=== PATIENT | female | born 1940 | race Caucasian/White ===

== ENCOUNTER 2017-11-26 18:26 | Inpatient (IN) | payer MEDICARE ==
[~2017-11-26] VITALS: Ht 160 cm; Wt 77.8 kg
[~2017-11-26 18:26] MED LIST: ALLO300T PO; AMLO10TA2 PO; ASPI-496 PO; CALC1CAP8 PO; FURO-93 PO; LOSA100T6 PO; METF500T4 PO; METO50TA82 PO; NIAC500T9 PO; PRAV20TA2 PO
[2017-11-26] MEDS ORDERED: SODIUM CHLORIDE FLUSH 10ML SYR IVF ONE (19:00)
[2017-11-26 19:06] LABS: BASOPHILS # (AUTO) 0.05 x10^3/uL (0-0.1); BASOPHILS % (AUTO) 1 % (0-1); EOSINOPHILS # (AUTO) 0.46 x10^3/uL (0-0.4); EOSINOPHILS % (AUTO) 4 % (1-7); LYMPHOCYTES # (AUTO) 3.47 x10^3/uL (1-3.4); LYMPHOCYTES % (AUTO) 32 % (22-44); MD NO; MEAN CORPUSCULAR HEMOGLOBIN 31.6 pg (27.0-34.8); MEAN CORPUSCULAR HGB CONC 33.4 g/dL (32.4-35.8); MEAN CORPUSCULAR VOLUME 94.5 fL (80-100); MONOCYTES # (AUTO) 0.88 x10^3/uL (0.2-0.8); MONOCYTES % (AUTO) 8 % (2-9); NEUTROPHILS # (AUTO) 6.15 x10^3/uL (1.8-6.8); NEUTROPHILS % (AUTO) 56 % (42-75); PLATELET COUNT 304 x10^3/uL (130-400); RED CELL DISTRIBUTION WIDTH 14.3 % (9.6-15.2)
[2017-11-26 19:11] LABS: INTERNATIONAL NORMALIZED RATIO 0.98 (0.93-1.1); PROTHROMBIN TIME 10.2 Seconds (9.6-11.5)
[2017-11-26 19:16] LABS: ALANINE AMINOTRANSFERASE 17 U/L (12-78); ALBUMIN 4.3 g/dL (3.4-5.0); ANION GAP 8 mmol/L (5-15); CALCIUM 9.9 mg/dL (8.5-10.1); CHLORIDE 105 mmol/L (98-107); CREATININE 1.12 mg/dL (0.55-1.02)
[2017-11-26 19:20] LABS: ALKALINE PHOSPHATASE 76 U/L (45-117); BILIRUBIN,TOTAL 0.3 mg/dL (0.2-1.0); TOTAL PROTEIN 8.2 g/dL (6.4-8.2); TROPONIN I < 0.015 ng/mL (0.000-0.045)
[2017-11-26 21:50] VITALS: BP_SYST 171; BP_SYST 96; BP_DIAS 65; BP_DIAS 67
[2017-11-26] MEDS ORDERED: ONDANSETRON ODT 4 MG PO PRN (23:00)
[2017-11-27] MEDS ORDERED: ASPIRIN 81 MG TABLET CHEW PO ONE
[2017-11-27] MEDS ORDERED: DIPHENHYDRAMINE 50 MG CAPSULE PO ONE
[2017-11-27] MEDS: ENOXAPARIN 40 MG/0.4 ML SQ SCH (00:21)
[2017-11-27] MEDS: PRAVASTATIN 20 MG TABLET PO SCH ×2 (00:21→20:29)
[2017-11-27 01:10] LABS: TROPONIN I < 0.015 ng/mL (0.000-0.045)
[2017-11-27 03:19] VITALS: BP 133/69
[2017-11-27 03:20] VITALS: BP 83/53
[2017-11-27 07:08] LABS: BASOPHILS # (AUTO) 0.13 x10^3/uL (0-0.1); BASOPHILS % (AUTO) 1 % (0-1); EOSINOPHILS # (AUTO) 0.39 x10^3/uL (0-0.4); EOSINOPHILS % (AUTO) 4 % (1-7); LYMPHOCYTES # (AUTO) 2.51 x10^3/uL (1-3.4); LYMPHOCYTES % (AUTO) 27 % (22-44); MD NO; MEAN CORPUSCULAR HEMOGLOBIN 31.6 pg (27.0-34.8); MEAN CORPUSCULAR HGB CONC 33.7 g/dL (32.4-35.8); MEAN CORPUSCULAR VOLUME 93.6 fL (80-100); MEAN PLATELET VOLUME 8.1 fL (7.4-10.4); MONOCYTES % (AUTO) 8 % (2-9); NEUTROPHILS % (AUTO) 60 % (42-75); PLATELET COUNT 300 x10^3/uL (130-400); RED CELL DISTRIBUTION WIDTH 14.1 % (9.6-15.2)
[2017-11-27 07:10] VITALS: BP 167/89
[2017-11-27 07:20] LABS: CHOL/HDL RATIO 2.1; LDL/HDL RATIO 0.6 (0.5-3.0)
[2017-11-27 07:36] LABS: TROPONIN I < 0.015 ng/mL (0.000-0.045)
[2017-11-27] MEDS: NIACIN 500 MG TABLET.ER PO SCH (08:06)
[2017-11-27] MEDS: FUROSEMIDE 20 MG TABLET PO SCH (08:06)
[2017-11-27] MEDS: METOPROLOL TARTRATE 50 MG TABLET PO SCH ×2 (08:06→20:30)
[2017-11-27] MEDS: LOSARTAN 50MG TABLET PO SCH (08:06)
[2017-11-27] MEDS: ALLOPURINOL 300 MG TABLET PO SCH (08:06)
[2017-11-27] MEDS: AMLODIPINE 5 MG TABLET PO SCH (08:06)
[2017-11-27] MEDS ORDERED: LORazepam 0.5MG TABLET PO ONE (08:30)
[2017-11-27] MEDS ORDERED: LORazepam 0.5MG TABLET ONE (08:32)
[2017-11-27] MEDS ORDERED: GADOBUTROL 7.5 MMOL/7.5 ML PFS ONE (09:06)
[2017-11-27 11:10] LABS: ANION GAP 11 mmol/L (5-15); CHLORIDE 109 mmol/L (98-107); CREATININE 1.02 mg/dL (0.55-1.02)
[2017-11-27 12:07] VITALS: BP 127/77
[2017-11-27] MEDS ORDERED: OMNIPAQUE 350 MG/ML, 100ML BOTTLE ONE (15:00)
[2017-11-27] MEDS ORDERED: NITROGLYCERIN 0.4 MG BOTTLE (25 TABS) SL PRN (16:00)
[2017-11-27] MEDS ORDERED: NITROGLYCERIN 0.4 MG/SPRAY SL PRN (16:00)
[2017-11-27] MEDS ORDERED: DEXTROSE 50%, 50ML SYRINGE IVPush PRN (16:30)
[2017-11-27] MEDS: INSULIN LISPRO 100 UNITS/ML, PEN SQ-INSULIN SCH ×2 (16:30→20:30)
[2017-11-27] MEDS ORDERED: GLUCAGON 1 MG IM PRN (16:30)
[2017-11-27] MEDS ORDERED: DEXTROSE 4 GM TAB.CHEW PO PRN (16:30)
[2017-11-27] MEDS: CLOPIDOGREL 75 MG TABLET PO SCH (16:37)
[2017-11-27 16:50] LABS: HEMOGLOBIN A1C 5.3 % (4.2-6.3)
[2017-11-27 18:26] VITALS: BP 154/79
[2017-11-27 18:27] VITALS: BP 113/74
[2017-11-27] MEDS: SODIUM CHLORIDE FLUSH 10ML SYR IVF SCH ×2 (20:30)
[2017-11-28] VITALS (8 sets, daily range): BP systolic 72–170; BP diastolic 49–80
[2017-11-28] MEDS: ENOXAPARIN 40 MG/0.4 ML SQ SCH (00:29)
[2017-11-28] MEDS: ASPIRIN 81 MG TABLET EC PO SCH (05:03)
[2017-11-28 05:58] LABS: ANION GAP 7 mmol/L (5-15); CALCIUM 9.5 mg/dL (8.5-10.1); CHLORIDE 107 mmol/L (98-107); CREATININE 0.92 mg/dL (0.55-1.02)
[2017-11-28] MEDS ORDERED: ASPIRIN 325 MG TABLET PO SCH (06:00)
[2017-11-28] MEDS: INSULIN LISPRO 100 UNITS/ML, PEN SQ-INSULIN SCH ×4 (07:00→20:27)
[2017-11-28] MEDS: FUROSEMIDE 20 MG TABLET PO SCH (09:00)
[2017-11-28] MEDS: SODIUM CHLORIDE FLUSH 10ML SYR IVF SCH ×4 (09:00→20:26)
[2017-11-28] MEDS: METOPROLOL TARTRATE 50 MG TABLET PO SCH ×2 (09:00→20:26)
[2017-11-28] MEDS: LOSARTAN 50MG TABLET PO SCH (10:43)
[2017-11-28] MEDS: CLOPIDOGREL 75 MG TABLET PO SCH (10:47)
[2017-11-28] MEDS: AMLODIPINE 5 MG TABLET PO SCH (10:47)
[2017-11-28] MEDS: NIACIN 500 MG TABLET.ER PO SCH (10:48)
[2017-11-28] MEDS: ALLOPURINOL 300 MG TABLET PO SCH (10:48)
[2017-11-28] MEDS ORDERED: REGADENOSON 0.4 MG/5 ML SYRINGE ONE (11:07)
[2017-11-28] MEDS: PRAVASTATIN 20 MG TABLET PO SCH (20:26)
[2017-11-29] MEDS: ENOXAPARIN 40 MG/0.4 ML SQ SCH
[2017-11-29 00:26] VITALS: BP 152/79
[2017-11-29] MEDS: ASPIRIN 81 MG TABLET EC PO SCH (05:09)
[2017-11-29 05:18] LABS: ANION GAP 7 mmol/L (5-15); CALCIUM 9.4 mg/dL (8.5-10.1); CHLORIDE 107 mmol/L (98-107)
[2017-11-29 06:48] VITALS: BP 145/74
[2017-11-29] MEDS: INSULIN LISPRO 100 UNITS/ML, PEN SQ-INSULIN SCH ×4 (07:00→21:08)
[2017-11-29] MEDS: SODIUM CHLORIDE FLUSH 10ML SYR IVF SCH ×4 (08:16→21:07)
[2017-11-29] MEDS: LOSARTAN 50MG TABLET PO SCH (08:16)
[2017-11-29] MEDS: ALLOPURINOL 300 MG TABLET PO SCH (08:16)
[2017-11-29] MEDS: FUROSEMIDE 20 MG TABLET PO SCH (08:17)
[2017-11-29] MEDS: NIACIN 500 MG TABLET.ER PO SCH (08:17)
[2017-11-29] MEDS: METOPROLOL TARTRATE 50 MG TABLET PO SCH ×2 (08:17→21:07)
[2017-11-29] MEDS: CLOPIDOGREL 75 MG TABLET PO SCH (08:19)
[2017-11-29] MEDS: AMLODIPINE 5 MG TABLET PO SCH (08:22)
[2017-11-29 12:24] VITALS: BP 123/73
[2017-11-29] MEDS ORDERED: FAMOTIDINE 20 MG TABLET ONE (15:27)
[2017-11-29] MEDS ORDERED: ONDANSETRON 2MG/ML, 2ML ONE (15:27)
[2017-11-29] MEDS ORDERED: ACETAMINOPHEN 500 MG TABLET ONE (15:28)
[2017-11-29] MEDS ORDERED: METOCLOPRAMIDE 10MG TABLET ONE (15:28)
[2017-11-29] MEDS ORDERED: CETIRIZINE 10 MG TABLET PO PRN (16:30)
[2017-11-29 19:28] VITALS: BP 97/60
[2017-11-29] MEDS: PRAVASTATIN 20 MG TABLET PO SCH (21:07)
[2017-11-30 00:53] VITALS: BP 146/77
[2017-11-30 05:13] LABS: BASOPHILS # (AUTO) 0.03 x10^3/uL (0-0.1); BASOPHILS % (AUTO) 0 % (0-1); EOSINOPHILS # (AUTO) 0.31 x10^3/uL (0-0.4); EOSINOPHILS % (AUTO) 4 % (1-7); LYMPHOCYTES % (AUTO) 29 % (22-44); MD NO; MEAN CORPUSCULAR HEMOGLOBIN 31.1 pg (27.0-34.8); MEAN CORPUSCULAR VOLUME 94.3 fL (80-100); MEAN PLATELET VOLUME 8.3 fL (7.4-10.4); MONOCYTES # (AUTO) 0.89 x10^3/uL (0.2-0.8); MONOCYTES % (AUTO) 11 % (2-9); NEUTROPHILS # (AUTO) 4.79 x10^3/uL (1.8-6.8); NEUTROPHILS % (AUTO) 56 % (42-75); PLATELET COUNT 272 x10^3/uL (130-400); RED BLOOD COUNT 4.13 x10^6/uL (3.82-5.3)
[2017-11-30 05:16] LABS: ANION GAP 9 mmol/L (5-15); CALCIUM 9.1 mg/dL (8.5-10.1); CHLORIDE 108 mmol/L (98-107); CREATININE 0.82 mg/dL (0.55-1.02)
[2017-11-30] MEDS: ASPIRIN 81 MG TABLET EC PO SCH (05:25)
[2017-11-30] MEDS: INSULIN LISPRO 100 UNITS/ML, PEN SQ-INSULIN SCH ×4 (07:00→20:29)
[2017-11-30 07:14] VITALS: BP 160/80
[2017-11-30] MEDS ORDERED: BUPIVACAINE/PF 0.5% ONE (07:17)
[2017-11-30] MEDS ORDERED: PAPAVERINE 30 MG/ML, 2ML ONE (07:17)
[2017-11-30] MEDS ORDERED: BACITRACIN 50,000 UNIT ONE (07:18)
[2017-11-30] MEDS ORDERED: PROTAMINE SULFATE 10 MG/ML, 5ML ONE (07:18)
[2017-11-30] MEDS ORDERED: HEPARIN 1,000 UNITS/ML, 10ML ONE (07:18)
[2017-11-30] MEDS ORDERED: THROMBIN 20,000 UNIT VIAL TP ONE (07:18)
[2017-11-30] MEDS ORDERED: EPINEPHRINE 1 MG/ML, 1ML ONE (07:18)
[2017-11-30] MEDS ORDERED: REMIFENTANIL 2 MG ONE ×2 (07:22)
[2017-11-30] MEDS ORDERED: GLYCOPYRROLATE 0.2MG/1ML, 5ML ONE (07:47)
[2017-11-30] MEDS ORDERED: DEXAMETHASONE 4 MG/ML, 1ML ONE (07:47)
[2017-11-30] MEDS ORDERED: NEOSTIGMINE 1 MG/ML, 10ML ONE (07:47)
[2017-11-30] MEDS ORDERED: PROPOFOL 10 MG/ML, 20ML ONE (07:47)
[2017-11-30] MEDS ORDERED: ONDANSETRON 2MG/ML, 2ML ONE (07:47)
[2017-11-30] MEDS ORDERED: CEFAZOLIN 1,000 MG ONE (07:47)
[2017-11-30] MEDS ORDERED: ROCURONIUM 10 MG/ML,10ML ONE (07:47)
[2017-11-30] MEDS ORDERED: PHENYLEPHRINE 10 MG/ML ONE (07:47)
[2017-11-30] MEDS ORDERED: BUPIVACAINE/PF-EPI 0.5% 1:200K IM ONE (08:31)
[2017-11-30] MEDS: METOPROLOL TARTRATE 50 MG TABLET PO SCH ×2 (09:00→20:28)
[2017-11-30] MEDS: SODIUM CHLORIDE FLUSH 10ML SYR IVF SCH ×2 (09:00→20:28)
[2017-11-30] MEDS: CLOPIDOGREL 75 MG TABLET PO SCH (09:00)
[2017-11-30] MEDS ORDERED: GLYCOPYRROLATE 0.4 MG/2 ML, 2ML ONE (11:08)
[2017-11-30] MEDS ORDERED: GLYCOPYRROLATE 0.2MG/1ML, 5ML IVPush ONE (12:00)
[2017-11-30] MEDS ORDERED: POTASSIUM CHLORIDE 20 MEQ in SODIUM CHLORIDE 0.45% 1,000 ML IV SCH (14:00)
[2017-11-30] MEDS ORDERED: ONDANSETRON 2MG/ML, 2ML IV PRN (14:00)
[2017-11-30] MEDS ORDERED: PHENYLEPHRINE 10 MG in DEXTROSE 5% 249 ML IV SCH (14:00)
[2017-11-30] MEDS ORDERED: LABETALOL 5MG/ML, 20ML IVPush PRN (14:00)
[2017-11-30] MEDS ORDERED: morphine SULFATE 10 MG/ML, 1ML IV PRN (14:00)
[2017-11-30] MEDS ORDERED: ACETAMINOPHEN 325 MG TABLET PO PRN (14:00)
[2017-11-30] MEDS ORDERED: NITROPRUSSIDE 50 MG in DEXTROSE 5% 248 ML IV SCH (14:00)
[2017-11-30 14:01] VITALS: BP 130/72
[2017-11-30] MEDS: FUROSEMIDE 20 MG TABLET PO SCH (14:09)
[2017-11-30] MEDS: NIACIN 500 MG TABLET.ER PO SCH (14:10)
[2017-11-30] MEDS: LOSARTAN 50MG TABLET PO SCH (14:13)
[2017-11-30] MEDS: ALLOPURINOL 300 MG TABLET PO SCH (14:13)
[2017-11-30] MEDS: AMLODIPINE 5 MG TABLET PO SCH (14:13)
[2017-11-30 18:30] VITALS: BP 146/70
[2017-11-30] MEDS: PRAVASTATIN 20 MG TABLET PO SCH (20:28)
[2017-11-30] MEDS: ENOXAPARIN 40 MG/0.4 ML SQ SCH ×2 (23:55)
[2017-12-01 00:36] VITALS: BP 145/65
[2017-12-01 05:04] LABS: BASOPHILS # (AUTO) 0.02 x10^3/uL (0-0.1); BASOPHILS % (AUTO) 0 % (0-1); EOSINOPHILS # (AUTO) 0.01 x10^3/uL (0-0.4); EOSINOPHILS % (AUTO) 0 % (1-7); LYMPHOCYTES # (AUTO) 1.46 x10^3/uL (1-3.4); LYMPHOCYTES % (AUTO) 13 % (22-44); MD NO; MEAN CORPUSCULAR HEMOGLOBIN 31.5 pg (27.0-34.8); MEAN CORPUSCULAR HGB CONC 33.5 g/dL (32.4-35.8); MEAN PLATELET VOLUME 8.5 fL (7.4-10.4); MONOCYTES # (AUTO) 0.72 x10^3/uL (0.2-0.8); MONOCYTES % (AUTO) 6 % (2-9); NEUTROPHILS # (AUTO) 9.11 x10^3/uL (1.8-6.8); NEUTROPHILS % (AUTO) 81 % (42-75); PLATELET COUNT 261 x10^3/uL (130-400)
[2017-12-01 05:05] LABS: ANION GAP 8 mmol/L (5-15); CALCIUM 9.3 mg/dL (8.5-10.1); CHLORIDE 109 mmol/L (98-107); CREATININE 0.88 mg/dL (0.55-1.02)
[2017-12-01] MEDS: ASPIRIN 81 MG TABLET EC PO SCH (05:06)
[2017-12-01 06:46] VITALS: BP 157/61
[2017-12-01] MEDS: INSULIN LISPRO 100 UNITS/ML, PEN SQ-INSULIN SCH ×2 (07:00→11:00)
[2017-12-01] MEDS: METOPROLOL TARTRATE 50 MG TABLET PO SCH (08:19)
[2017-12-01] MEDS: LOSARTAN 50MG TABLET PO SCH (08:19)
[2017-12-01] MEDS: CLOPIDOGREL 75 MG TABLET PO SCH (08:19)
[2017-12-01] MEDS: NIACIN 500 MG TABLET.ER PO SCH (08:20)
[2017-12-01] MEDS: AMLODIPINE 5 MG TABLET PO SCH (08:20)
[2017-12-01] MEDS: ALLOPURINOL 300 MG TABLET PO SCH (08:20)
[2017-12-01] MEDS: FUROSEMIDE 20 MG TABLET PO SCH (08:20)
[2017-12-01] MEDS: SODIUM CHLORIDE FLUSH 10ML SYR IVF SCH (09:00)
[2017-12-01 12:50] VITALS: BP 132/71
== END 2017-12-01 16:03 | disposition home or self-care (01) | DRG 38 ==
LOC: ED 19:49 → EDIP 19:54 → ED 20:45 → 4WST 21:52
PROVIDERS: ADMIT Hospitalist; ATTEND Hospitalist
PROC: 03CH0ZZ Extirpation of Matter from Right Common Carotid Artery, Open Approach (ICD-10-PCS; principal; 2017-12-01)
PROC: 03CM0ZZ Extirpation of Matter from Right External Carotid Artery, Open Approach (ICD-10-PCS; 2017-12-01)
PROC: 03CK0ZZ Extirpation of Matter from Right Internal Carotid Artery, Open Approach (ICD-10-PCS; 2017-12-01)
PROC: 03UH0KZ Supplement Right Common Carotid Artery with Nonautologous Tissue Substitute, Open Approach (ICD-10-PCS; 2017-12-01)
PROC: 4A1134G Monitoring of Peripheral Nervous Electrical Activity, Intraoperative, Percutaneous Approach (ICD-10-PCS; 2017-12-01)
DX: I65.23 Occlusion and stenosis of bilateral carotid arteries (principal); H34.01 Transient retinal artery occlusion, right eye; E11.51 Type 2 diabetes mellitus with diabetic peripheral angiopathy without gangrene; I11.9 Hypertensive heart disease without heart failure; Z88.5 Allergy status to narcotic agent; E78.5 Hyperlipidemia, unspecified; I25.10 Atherosclerotic heart disease of native coronary artery without angina pectoris; Z96.651 Presence of right artificial knee joint; I65.03 Occlusion and stenosis of bilateral vertebral arteries; H54.61 Unqualified visual loss, right eye, normal vision left eye; I25.2 Old myocardial infarction; Z79.84 Long term (current) use of oral hypoglycemic drugs; Z82.49 Family history of ischemic heart disease and other diseases of the circulatory system; Z86.73 Personal history of transient ischemic attack (TIA), and cerebral infarction without residual deficits; Z87.891 Personal history of nicotine dependence; Z91.81 History of falling; Z95.1 Presence of aortocoronary bypass graft; Z95.2 Presence of prosthetic heart valve
CPT/HCPCS: 36415; 70450; 70496; 70498; 70553; 71045; 78452; 80048; 80053; 80061; 82962; 83036; 83735; 84100; 84484; 85025; 85347; 85610; 85730; 93005; 93017; 93306; 95938; 95941; 99285; A9585; C1729; J0171; J0690; J1100; J1644; J1650; J2405; J2704; J2710; J2720; J2785; J3480; J3490; Q9967; A9502; C1768; C9898; J1815; J2370; J2440